=== PATIENT | male | born 1970 | race Caucasian/White ===

== ENCOUNTER → 2017-05-18 | Outpatient (CLI) | payer BC ==
[~2017-05-18] MED LIST: ALPR-411 PO; LORA10CA2 PO; MULTTAB58 PO; OMEGCAP2 PO
== END | disposition home or self-care (01) ==
LOC: C.PATHSPEC 17:07
PROVIDERS: ATTEND Plastic Surgery
DX: L72.0 Epidermal cyst (principal)

== ENCOUNTER → 2017-11-14 | Outpatient (CLI) | payer OTHER ==
[~2017-11-14] VITALS: Ht 185.4 cm; Wt 89.4 kg
[2017-11-14 15:57] VITALS: BP 119/76; PULSE 65; Ht 185.4 cm; Wt 89.4 kg
== END | disposition home or self-care (01) ==
LOC: C.NEUR 14:36
PROVIDERS: ATTEND Internal Medicine Pulmonary Disease
DX: G47.30 Sleep apnea, unspecified (principal); F51.4 Sleep terrors [night terrors]

== ENCOUNTER → 2017-11-23 | Outpatient (CLI) | payer OTHER ==
[2017-11-23 09:55] LABS: BASO % 0.2 %; BASO ABS # 0.01 K/uL (0-0.2); EOS % 1.5 %; EOS ABS # 0.08 K/uL (0-0.5); HEMATOCRIT 48.2 % (42-52); IG# 0.01 K/uL (0.00-0.02); LYMPH % 37.5 %; LYMPH ABS # 2.01 K/uL (1.2-3.4); MEAN CELL VOLUME 88.1 fL (80-100); MEAN CORPUSCULAR HEMOGLOBIN 29.3 pg (25-34); MEAN CORPUSCULAR HGB CONC 33.2 g/dl (32-36); MEAN PLATELET VOLUME 10.6 fL (7.4-10.4); MONO % 12.3 %; MONO ABS # 0.66 K/uL (0.11-0.59); NEUT % 48.3 %; NEUT ABS # 2.59 K/uL (1.4-6.5); PLATELET COUNT 216 K/uL (130-400); RED CELL DISTRIBUTION WIDTH CV 12.9 % (11.5-14.5); WHITE BLOOD COUNT 5.36 K/uL (4.8-10.8)
[2017-11-23 10:33] LABS: ALT/SGPT 29 U/L (12-78); AST/SGOT 20 U/L (15-37); BLOOD UREA NITROGEN 18 mg/dl (7-18); CALCIUM 9.8 mg/dl (8.5-10.1); CARBON DIOXIDE 31 mmol/L (21-32); CREATININE 1.16 mg/dl (0.60-1.40); GLUCOSE 91 mg/dl (70-99); LIPASE 285 U/L (73-393); POTASSIUM 4.4 mmol/L (3.5-5.1); SODIUM 137 mmol/L (136-145)
[2017-11-23 10:45] LABS: ALKALINE PHOSPHATASE 59 U/L (45-117)
== END | disposition home or self-care (01) ==
LOC: C.LAB 09:04
PROVIDERS: ATTEND Family Medicine
DX: R10.32 Left lower quadrant pain (principal); K59.00 Constipation, unspecified

== ENCOUNTER → 2017-11-24 | Outpatient (CLI) | payer OTHER ==
[~2017-11-24] MED LIST changes: +OPTIRAY 320 IV PRN
--- NOTE | 2017-11-24 08:13 | DIAGNOSTIC IMAGING REPORT ---
ABD/PELVIS IV CONTRAST ONLY CT DOSE: 374.01 mGy.cm HISTORY: Left flank pain LEFT LOWER QUAD PAIN TECHNIQUE: Multiaxial CT images of the abdomen and pelvis were performed following the use of intravenous contrast. A dose lowering technique was utilized adhering to the principles of ALARA. COMPARISON STUDY: None. FINDINGS: Lung bases are clear. Small calcified granuloma left posterior gastric angle. Multiple small hepatic hypodensities suggestive of small cysts versus meningiomas. Gallbladder is negative for distention. Pancreas and right kidney are unremarkable. Left kidney demonstrates diminished enhancement of the mid interpolar region. Trace amount of left renal perinephric infiltrative change. Possibility of pyelonephritis must be considered. Nonobstructive bowel pattern. Normal appendix IMPRESSION: 1. Diminished enhancement characteristics of the interpolar region of the left kidney. 2. Diagnostic considerations initially must include pyelonephritis 3. After an appropriate course of treatment, the study should be repeated with attention to the kidneys to exclude a residual space-occupying lesion. 4. Remainder the study is remarkable only for multiple small hepatic cysts, hemangiomas. The above report was generated using voice recognition software. It may contain grammatical, syntax or spelling errors. Electronically signed by: Harley Velazquez M.D. 11/24/2017 8:12 AM Dictated Date/Time: 11/24/2017 8:08 AM
== END | disposition home or self-care (01) ==
LOC: C.CTS 07:38
PROVIDERS: ATTEND Family Medicine
DX: R10.32 Left lower quadrant pain (principal)

== ENCOUNTER → 2017-11-27 | Outpatient (CLI) | payer OTHER ==
[~2017-11-27] MED LIST changes: -OPTIRAY 320 IV PRN
== END | disposition home or self-care (01) ==
LOC: C.LAB 10:06
PROVIDERS: ATTEND Family Medicine
DX: R10.32 Left lower quadrant pain (principal)

== ENCOUNTER → 2017-12-29 | Outpatient (CLI) | payer OTHER ==
--- NOTE | 2017-12-29 10:27 | DIAGNOSTIC IMAGING REPORT ---
(RENAL)RETROPERITON COMP HISTORY: Renal mass ABNORMAL KIDNEY CT SCAN COMPARISON: November 24, 2017 FINDINGS: Right kidney: No hydronephrosis. Normal corticomedullary differentiation and cortical thickness. Left kidney: No hydronephrosis. Ill-defined density outer margin mid pole left kidney. This corresponds to the area of inhomogeneous enhancement base of the patient's prior CT study. Dimensions are approximately 3 x 2 cm. There may be several microcalcifications present. There is no evidence for hydronephrosis. Bladder: No bladder wall thickening. The bilateral ureteral jets were identified. IMPRESSION: 1. Potential well-defined masslike process mid pole left kidney. 2. Either a multi phase CT evaluation of the kidneys or MRI kidneys is suggested to exclude a neoplastic process. The above report was generated using voice recognition software. It may contain grammatical, syntax or spelling errors. Electronically signed by: Harley Velazquez M.D. 12/29/2017 10:26 AM Dictated Date/Time: 12/29/2017 10:14 AM
== END | disposition home or self-care (01) ==
LOC: C.ULTR 09:50
PROVIDERS: ATTEND Family Medicine
DX: R93.429 Abnormal radiologic findings on diagnostic imaging of unspecified kidney (principal)

== ENCOUNTER → 2018-01-15 | Outpatient (CLI) | payer OTHER ==
[~2018-01-15] MED LIST changes: +GADAVIST IV PRN
--- NOTE | 2018-01-15 18:25 | DIAGNOSTIC IMAGING REPORT ---
MRI OF THE ABDOMEN WITH AND WITHOUT CONTRAST RENAL PROTOCOL CLINICAL HISTORY: Possible left renal mass on prior CT scan. COMPARISON STUDY: CT of the abdomen and pelvis November 24, 2017 and renal ultrasound December 29, 2017. TECHNIQUE: Utilizing a 1.5 Sarita magnet and dedicated coil, multiplanar, multiecho imaging of the abdomen was performed pre and postcontrast administration. Post contrast imaging was performed utilizing dynamic enhancement following injection of 8.6 cc of Gadavist IV. FINDINGS: No solid renal lesion is present. There is focal mild volume loss within the midpole of the left kidney which corresponds to the abnormality on CT of November 24, 2017. This reflects mild scarring and is likely the sequela of pyelonephritis. A 6 mm cyst within the midpole of the left kidney is noted. There is no hydronephrosis. Several hepatic cysts measure up to 1.4 cm. No abdominal lymphadenopathy is present. The spleen, adrenal glands and pancreas are unremarkable. There is no biliary or pancreatic ductal dilatation. Caliber of visualized small and large bowel is normal. IMPRESSION: 1. No solid renal lesion. Focal mild scarring within the midpole of the left kidney which reflects scarring and likely reflects sequela of pyelonephritis which was shown on CT of November 24, 2017. 2. 6 mm left renal cyst. Electronically signed by: Ricky Riley M.D. 01/15/2018 6:24 PM Dictated Date/Time: 01/15/2018 6:13 PM
== END | disposition home or self-care (01) ==
LOC: C.MRI 16:24
PROVIDERS: ATTEND Family Medicine
DX: R93.429 Abnormal radiologic findings on diagnostic imaging of unspecified kidney (principal)